=== PATIENT | female | born 1995 | race Caucasian/White ===

== ENCOUNTER 2017-10-13 20:01 | Emergency (ER) | payer OTHER ==
[~2017-10-13] VITALS: Ht 182.9 cm; Wt 76.2 kg
[2017-10-13 20:28] LABS: BASOPHILS # (AUTO) 0.03 x10^3/uL (0-0.3); BASOPHILS % (AUTO) 0 % (0-1); EOSINOPHILS # (AUTO) 0.09 x10^3/uL (0-0.8); EOSINOPHILS % (AUTO) 1 % (1-7); LYMPHOCYTES % (AUTO) 31 % (22-44); MD NO; MEAN CORPUSCULAR HEMOGLOBIN 30.6 pg (27.0-34.8); MEAN CORPUSCULAR HGB CONC 34.4 g/dL (32.4-35.8); MONOCYTES # (AUTO) 0.51 x10^3/uL (0-1.4); MONOCYTES % (AUTO) 6 % (2-9); NEUTROPHILS # (AUTO) 5.66 x10^3/uL (1.8-8.0); NEUTROPHILS % (AUTO) 62 % (42-75); PLATELET COUNT 336 x10^3/uL (130-400); RED BLOOD COUNT 4.99 x10^6/uL (3.82-5.3); RED CELL DISTRIBUTION WIDTH 13.2 % (9.6-15.2)
[2017-10-13] MEDS ORDERED: DICYCLOMINE 20 MG TABLET PO ONE (20:30)
[2017-10-13 20:37] LABS: ALANINE AMINOTRANSFERASE 22 U/L (12-78); ALBUMIN 3.8 g/dL (3.4-5.0); ANION GAP 8 mmol/L (5-15); CALCIUM 8.6 mg/dL (8.5-10.1); CHLORIDE 104 mmol/L (98-107); CREATININE 0.86 mg/dL (0.55-1.02)
[2017-10-13 20:42] LABS: ALKALINE PHOSPHATASE 74 U/L (45-117); BILIRUBIN,TOTAL 0.4 mg/dL (0.2-1.0); TOTAL PROTEIN 7.6 g/dL (6.4-8.2)
[2017-10-13 20:49] LABS: MICROSCOPIC NOT IND
[2017-10-13 20:55] LABS: CULTURE INDICATED? NO
[2017-10-13] MEDS ORDERED: DICYCLOMINE 20 MG TABLET ONE (20:59)
[2017-10-13] MEDS ORDERED: PLEASE ENTER ALLERGIES MC SCH (21:00)
[2017-10-13] MEDS ORDERED: [UNRECOGNIZED DRUG - OTHER] PO (21:13)
[2017-10-13] MEDS ORDERED: MULTIVITAMIN PO (21:13)
[2017-10-13] MEDS ORDERED: VITAMIN B2 PO (21:13)
[2017-10-13] MEDS ORDERED: VITAMIN C PO (21:13)
[2017-10-13] MEDS ORDERED: MAGNESIUM PO (21:13)
[2017-10-13] MEDS ORDERED: VITAMIN D3 PO (21:13)
[2017-10-13] MEDS ORDERED: OMEGA 3 PO (21:13)
[2017-10-13] MEDS ORDERED: VITAMIN K2 PO (21:13)
[2017-10-13] MEDS ORDERED: ZYRTEC PO (21:13)
[2017-10-13] MEDS ORDERED: ZOLOFT PO (21:13)
[2017-10-13] MEDS ORDERED: VITAMIN B1 PO (21:13)
[2017-10-13 21:14] VITALS: BP 114/82
== END 2017-10-13 21:58 | disposition home or self-care (01) ==
LOC: ED 21:52
DX: R10.84 Generalized abdominal pain (principal); R11.0 Nausea; K59.00 Constipation, unspecified; R19.7 Diarrhea, unspecified; R68.83 Chills (without fever)
CPT/HCPCS: 36415; 80053; 81003; 83690; 84703; 85025; 99284